=== PATIENT | female | born 1970 | race Caucasian/White ===

== ENCOUNTER 2025-08-05 06:40 | Day surgery (SDC) | payer OTHER ==
[~2025-08-05] VITALS: Ht 162.6 cm; Wt 140.0 kg
[~2025-08-05 06:40] MED LIST: ALBU18HF12 IH; ALPR-707 PO; AMLO-258 PO; ASPI-1450 PO; ATEN-72 PO; BUPR-112 PO; CHOL100018 PO; FLUT1BLS6 IH; FOLI-130 PO; IPRA4AER IH; LISI-894 PO; SIMV-260 PO; SODIUM CHLORIDE 0.9% 1,000 ML ONE
[2025-08-05] MEDS: SODIUM CHLORIDE 0.9% 1,000 ML IV ONE (07:51)
[2025-08-05] MEDS ORDERED: FentaNYL CITRATE PF 100 MCG/2 ML VIAL ONE (08:06)
[2025-08-05] MEDS ORDERED: MIDAZOLAM HCL 2 MG/2 ML VIAL ONE (08:06)
[2025-08-05] MEDS ORDERED: CETI10TA58 PO (08:27)
[2025-08-05] MEDS ORDERED: METF-446 PO (08:27)
[2025-08-05] MEDS ORDERED: OMEP40CA21 PO (08:27)
[2025-08-05] MEDS ORDERED: FURO40TA6 PO (08:27)
[2025-08-05] MEDS ORDERED: UMEC62.5 PO (08:27)
[2025-08-05] MEDS ORDERED: METO-416 PO (08:27)
[2025-08-05] MEDS ORDERED: MONT-40 PO (08:27)
[2025-08-05] MEDS ORDERED: EZET10TA57 PO (08:27)
[2025-08-05] MEDS ORDERED: GLIP5TAB15 PO (08:27)
[2025-08-05] MEDS ORDERED: FLUT1BLS7 PO (08:27)
[2025-08-05] MEDS ORDERED: CHOL500013 PO (08:27)
[2025-08-05 08:51] LABS: GLUCOMETER DEV NAME(LOC) SDS.; GLUCOSE,POINT OF CARE 175 MG/DL (70-110)
[2025-08-05 09:35] VITALS: PULSE 68; RESP 19; O2SAT 97
[2025-08-05] MEDS ORDERED: LIDOCAINE 2% 11 ML JELLY ONE (12:00)
[2025-08-05] MEDS ORDERED: ALBUTEROL SULFATE 2.5 MG/0.5 ML NEB SOLUTION NEB ONE (12:00)
[2025-08-05] MEDS ORDERED: LIDOCAINE 4% 50 ML SOLUTION ONE (12:00)
[2025-08-05] MEDS ORDERED: BENZOCAINE 20% 50 MCG/SPRAY 57 GM ONE (12:00)
== END 2025-08-05 13:10 | disposition home or self-care (01) ==
LOC: SURGERY 06:40
PROVIDERS: ATTEND Internal Medicine Critical Care Medicine
DX: R05.3 Chronic cough (principal); J38.4 Edema of larynx; B37.0 Candidal stomatitis; R06.2 Wheezing; R04.2 Hemoptysis; I45.4 Nonspecific intraventricular block; J44.9 Chronic obstructive pulmonary disease, unspecified; R91.8 Other nonspecific abnormal finding of lung field; E11.9 Type 2 diabetes mellitus without complications; E78.00 Pure hypercholesterolemia, unspecified; I11.0 Hypertensive heart disease with heart failure; I50.9 Heart failure, unspecified; G47.30 Sleep apnea, unspecified; M19.90 Unspecified osteoarthritis, unspecified site; Z86.2 Personal history of diseases of the blood and blood-forming organs and certain disorders involving the immune mechanism; Z79.899 Other long term (current) drug therapy
CPT/HCPCS: 31623; 82962; 87206; 87101; 87220; 87070; 88108; 93005; 31624; 71045; 87015; J3010; J2250; J2919; J7030; J7613; Z7610